=== PATIENT | male | born 1995 | race Caucasian/White ===

== ENCOUNTER 2019-05-07 05:33 | Day surgery (SDC) | payer BC ==
[~2019-05-07] VITALS: Ht 193 cm; Wt 68.9 kg
--- NOTE | ~2019-05-07 | O ---
[address] [address] OPERATIVE REPORT Name: RODNEY STACK Room #: 150-4 [facility] M.R.#: [id number] Admission: 05/07/19 ������������������ Attend Phys: Tyrone Gallagher MD Discharge: ������������������ Date of : [birth year] Report #: [id number] THIS REPORT FOR: //name// CC: CHELY Gallagher Physician staff DATE OF SERVICE: 05/07/2019 SERVICE: Orthopedics. FACILITY: [facility]. SURGEON: Tyrone Gallagher MD. FIRE SPRINKLER SERVICE TECHNICIAN: Oma Urbano NP. INDICATIONS FOR FIRE SPRINKLER SERVICE TECHNICIAN: Soft tissue retraction, assistance with the reduction, provisional fixation as well as definitive internal fixation and wound closure. COMPLICATIONS: None. DRAINS: None. SPECIMENS: None. ANESTHESIA: General. PREOPERATIVE DIAGNOSIS: Displaced comminuted intra-articular lateral tibial plateau fracture. POSTOPERATIVE DIAGNOSES: 1. Displaced comminuted intra-articular lateral tibial plateau fracture. 2. Peripheral lateral meniscus tear, right knee. PROCEDURE: 1. Open reduction internal fixation, right tibial plateau fracture. 2. Open lateral meniscus repair. COMPLICATIONS: None. DRAINS: None. SPECIMENS: None. [address] [address] OPERATIVE REPORT Name: RODNEY STACK [id number] Ad[facility]: 05/07/19 ������������������ Attend Phys: Tyrone Gallagher MD Discharge: ������������������ Date of : [birth year] Report #: [id number] FINDINGS: 1. Intra-articular comminution with anatomic reduction on direct visualization as well as intraoperative fluoroscopy on multiple planes. 2. [place] tibial plateau plate, #2 Tevdek suture repair of meniscal capsular junction, meniscal tear. HISTORY: The patient is a 23-year-old young man who sustained an acute injury to his right knee earlier this week. He had a CT scan and an x-ray, which showed a displaced intraarticular fracture with a loose body within the joint. We had a discussion about treatment options and recommended surgical treatment. He was in agreement. Risks, benefits, alternatives and indications of surgery were discussed with him in detail. Risks include but not limited to pain, bleeding, infection, injury to nerves or blood vessels, malunion, nonunion, need for further surgery including hardware removal as well as revision as well as complications related to anesthesia such as stroke, heart attack, pulmonary complications, thromboembolic disease and . Despite these risks, he wished to proceed. PROCEDURE IN DETAIL: After right lower extremity was correctly identified in preoperative holding area as the operative extremity, the patient was taken to the operating room where general anesthesia was induced without complication. He was padded appropriately. Prophylactic antibiotics were administered at appropriate time. Tourniquet was applied to right leg. Right leg was then prepped and draped in standard sterile fashion. Time-out procedure was performed. Esmarch was utilized. Tourniquet inflated to 250 mmHg. Total tourniquet time was 119 minutes. A standard lateral approach was made based between the fibular head and Gerdy's tubercle. Full thickness skin flaps were developed. Dissection was taken down to the fascia, which was then incised and then, the IT band was visualized with the insertion on the tubercle. The anterior compartment was exposed and then was dissected off the anterior aspect of the lateral tibial plateau fracture fragment and it was retracted laterally to allow exposure of the fracture itself. The anterior cortex of the tibial plateau was exposed in a limited fashion as well to avoid any soft tissue stripping. There was comminution of the distal portion, but there did appear to be a good anatomic kay of the primary fracture fragment. Fracture was displaced and this allowed a conduit to the intra-articular hemarthrosis, which was irrigated and lavaged out of the knee. The fracture hematoma was debrided out for fracture as well. Overall, the bone quality was good and there was not a significant bony defect within the proximal tibia. With the fracture displaced and gapped open, the intra-articular structures could be visualized. A submeniscal arthrotomy was performed on the anterolateral and lateral portion of the capsule. There was a tear at the meniscal capsular junction anteriorly where the fracture had exited anteriorly. There was also comminution of the fracture here indicating that there was significant trauma in this location. There were two small segments of [address] [address] OPERATIVE REPORT Name: RODNEY STACK Room #: 150-4 [facility] M.R.#: [id number] Admission: 05/07/19 ������������������ Attend Phys: Tyrone Gallagher MD Discharge: ������������������ Date of : [birth year] Report #: [id number] articular cartilage that were not salvageable and were removed with a rongeur and then, the displaced intra-articular fragment was pressed. It was depressed under direct visualization using C-arm fluoroscopy as well. The primary displacement of this separate fracture fragment was rotated anteriorly and inferiorly with the more posterior portion of the fragment kicked up into the joint, so the reduction was to rotate this back down. After this was performed, this allowed anatomic reduction of the lateral tibial plateau fragment by elevating it and rotating it in a counterclockwise fashion allowing for anatomic cortical kay. A stab incision was made medially and a large Mehul Tong reduction clamp was used to reduce the fracture temporarily. K-wires were then driven across the fracture with a total of four multiple planes to provide good provisional fixation. Then, the clamp was removed. The plate was placed provisionally over one of the K-wires and then, the clamp was placed over the top of the plate and the plate was used to reduce the fracture and maintain it anatomically. A nonlocking screw was then placed proximally, which allowed the plate to be compressed against the lateral cortex at the subchondral region. Care was taken to assure that the plate was placed appropriately low and during this entire time, the traction stitches, which were placed in the lateral meniscus, were pulled superiorly to allow direct visualization of the articular surface itself, which remained anatomically reduced throughout the fixation after the provisional fixation had been secured. With first proximal screw placed, the second screw was then placed with a nonlocking technique to compress the plate to the fracture proximally and then, it was fixed to the shaft distally. The locking screws were then placed in sequential fashion and filled in a corresponding manner using fluoroscopy on multiple planes. The comminuted piece distally had been placed underneath the plate and the plate held it reduced in its anatomic position. At this point, the plate was lifted off the shaft distally, so a nonlocking screw was placed at the end of the plate while placing the clamp distally to help bend the plate back into its appropriate position on the lateral aspect of the tibia. Because the fixation was secured proximally, bending the plate down to the bone and driving it into a compressed position against the bone did not cause any displacement of the fracture or malalignment. Final x-rays were taken in multiple planes after final screw placement had been performed and then, the wound was copiously irrigated. The tourniquet was let down. Prior to letting the tourniquet down, the meniscal repair was performed. A total of two #2 Tevdek sutures with acajda-ch-vzfyo suture techniques were used to repair the meniscal capsular junction and the anterior portion of the lateral meniscus and in addition, the sutures were used to close the submeniscal arthrotomy. The IT band was then closed over the posterior portion of the plate with 0 Vicryl suture and then, the anterior compartment was repaired over the plate as well with 0 Vicryl suture in zmvwsu-pu-pzvyh fashion also. The wound was copiously irrigated. 1 gram of vancomycin powder was placed within the wound including deep to the anterior compartments over the hardware itself and then at this point is when the tourniquet came down. Hemostasis was achieved [address] [address] OPERATIVE REPORT Name: RODNEY STACK CHANTILLY Room #: 150-4 [facility] M.R.#: [id number] Admission: 05/07/19 ������������������ Attend Phys: Tyrone Gallagher MD Discharge: ������������������ Date of : 97 Report #: [id number] and then, the fascial layer was closed with 0 Vicryl suture in mcitjp-wq-owihd fashion. The skin was closed with 2-0 Vicryl followed by running subcuticular 3-0 Monocryl. Dermabond and then the poke holes were closed with a Monocryl suture as well. Sterile dressing was applied followed by a PolarCare device and the compression stocking. The patient was awakened from anesthesia and taken to recovery room in stable condition. There were no complications. All counts were recorded as correct. ��������������������������������������������� ���������������������������������������� By: ��������������������������������������������� [id number] Tyrone Gallagher MD /nt
[~2019-05-07 05:33] MED LIST: CENTRUM SILVER1 EAC2 PO; METHYLPHENIDATE18 MG PO; METHYLPHENIDATE5 M1 PO; NORCO 5-325 TA1 EAC1 PO; OXYCODONE HCL 55 MG PO; SYNTHROID25 MC1 PO; VENTOLIN HFA 1818 GM INH
[2019-05-07 12:30] VITALS: BP 128/72
[2019-05-07 18:25] VITALS: BP 140/70
[2019-05-07 19:40] VITALS: BP 130/64
[2019-05-08 00:11] VITALS: BP 128/54
[2019-05-08 03:53] VITALS: BP 112/58
[2019-05-08 12:04] VITALS: BP 112/58
== END 2019-05-08 12:30 | disposition home or self-care (01) ==
LOC: OR → TBA 05:33 → OR 05:33 → TBA 05:35 → OR 14:39 → 4E 18:45 → ENTRNSPT 05-08 12:13 → EDTRNSPTSTS 05-08 12:15 → OR 05-08 12:30
DX: S82.121A Displaced fracture of lateral condyle of right tibia, initial encounter for closed fracture (principal); S83.261A Peripheral tear of lateral meniscus, current injury, right knee, initial encounter; E03.9 Hypothyroidism, unspecified; J45.909 Unspecified asthma, uncomplicated; Y99.8 Other external cause status; Z79.899 Other long term (current) drug therapy; X58.XXXA Exposure to other specified factors, initial encounter; Y93.89 Activity, other specified; Y92.89 Other specified places as the place of occurrence of the external cause; Z98.890 Other specified postprocedural states
CPT/HCPCS: 10783; 50010; 50101; 50176; 50415; 51320; 52001; 52282; 54118; 55430; 56527; 56528; 56531; 57180; 62110; 62900; 65060; 70005